=== PATIENT | female | born 2000 | race Caucasian/White ===

== ENCOUNTER 2022-01-13 23:15 | Emergency (ER) | payer OTHER, SELFPAY ==
[2022-01-13 23:17] VITALS: BP 145/83; PULSE 83; RESP 17; TEMP 36.6; O2SAT 99
--- NOTE | 2022-01-14 00:16 | ED.EYEPROB ---
HPI - Eye Problem General Chief complaint: Eye Problems Stated complaint: Eye injury Time Seen by Provider: 01/14/22 00:05 History of Present Illness HPI Narrative: 21-year-old female presented to the emergency room for evaluation of swelling to her right eye. Patient states that she was exposed to a cat which she is allergic to and was pulling cat hair out of her right eye. Noticed swelling of her conjunctive on her right eye. Denies any visual changes. Denies photosensitivity. Related Data Home Medications Medication Instructions Recorded Confirmed sertraline 50 mg tablet 50 mg PO DAILY 02/03/20 Allergies Allergy/AdvReac Type Severity Reaction Status Date / Time No Known Allergies Allergy Verified 01/13/22 23:19 Review of Systems Review of Systems: CONSTITUTIONAL: Denies fever, chills, or sweats. EYES: Reports swelling to her right eye ENT: Denies rhinorrhea, congestion, sore throat, or otalgia. CARDIOVASCULAR: Denies chest pain, palpitations, or edema. RESPIRATORY: Denies cough or dyspnea. GASTROINTESTINAL: Denies abdominal pain, nausea, vomiting, or diarrhea. GENITOURINARY: Denies dysuria or hematuria. SKIN: Denies rash or itching. MUSCULOSKELETAL: Denies back pain, joint pain, or myalgia. NEUROLOGIC: Denies headache, numbness, dizziness, or weakness. PSYCHIATRIC: Denies anxiety or depression. [facility] Past Medical History Medical History (Updated 01/14/22 @ 00:19 by Dev Martin APRN) Anxiety Depression Social History Social History Smoking status: Never smoker Alcohol intake: never Substance use: never Substance use type: does not use Gender identity (if verbalized by the patient): Female Exam Narrative: GENERAL: Well-appearing, well-nourished, no physical limitations, and in no acute distress. HEAD: Normocephalic, atraumatic. EYES: Chemosis noted to lateral aspect of right eye, PERRLA and EOMI. CHEST: Clear to auscultation. No respiratory distress. No wheezes rales or rhonchi. No tenderness. HEART: Regular rate and rhythm. No murmur heard. Normal peripheral pulses. BACK: No CVA tenderness; No cervical/thoracic/lumbar tenderness, step-offs, bony abnormality; FROM EXTREMITIES: Normal range of motion. No edema. No clubbing or cyanosis SKIN: Warm, dry, no rash. No noted wounds NEURO: No focal deficits. Alert and oriented x3. MAEW. CN's II-XI intact bilaterally, normal gait PSYCH: Cooperative. Normal mood and affect. Course Vital Signs Vital signs: Vital Signs Temperature 36.6 C 01/13/22 23:17 Pulse Rate 83 01/13/22 23:17 Respiratory Rate 17 01/13/22 23:17 Blood Pressure 145/83 H 01/13/22 23:17 Pulse Oximetry 99 01/13/22 23:17 Oxygen Delivery Room Air 01/13/22 23:17 Temperature 36.6 C 01/13/22 23:17 Pulse Rate 83 01/13/22 23:17 Respiratory Rate 17 01/13/22 23:17 Blood Pressure 145/83 H 01/13/22 23:17 Pulse Oximetry 99 01/13/22 23:17 Oxygen Delivery Room Air 01/13/22 23:17 Discharge Plan Discharge Clinical Impression: Acute allergic conjunctivitis Patient Disposition: Home, Self-Care Condition: Stable Instructions: Antibiotic Form Additional Instructions: Recommend taking Zyrtec or Claritin during the day. May take Benadryl at night to alleviate the swelling. Prescriptions: New polymyxin B sulf-trimethoprim 10,000 unit- 1 mg/mL drops 1 drp RIGHT EYE Q3H 5 Days Qty: 10 0RF Rx Instructions: while awake; do not exceed 6 doses in 24 hours No Action sertraline 50 mg tablet 50 mg PO DAILY Follow-up/Referrals: Carlitos Lubin MD [Primary Care Provider] - Time of Disposition: 00:20
== END 2022-01-14 00:38 | disposition home or self-care (01) ==
LOC: ANHED 01-14 00:26
PROVIDERS: Emergency Provider Nurse Practitioner Family; PCP Family Medicine
DX: H10.11 Acute atopic conjunctivitis, right eye (principal); F41.9 Anxiety disorder, unspecified; F32.A Depression, unspecified
CPT/HCPCS: 96372; 99283; J1100

== ENCOUNTER 2023-11-26 17:22 | Emergency (ER) | payer OTHER, SELFPAY ==
[2023-11-26 17:34] VITALS: BP 141/78; PULSE 81; RESP 20; TEMP 36.4; O2SAT 99
[2023-11-26 19:52] LABS: Basophils Percent Auto 0.3 % (0.2-1.2); Eosinophils Absolute Auto 0.3 K/mm3 (0-0.3); Eosinophils Percent Auto 2.7 % (0-4.4); Hematocrit 38.2 % (37.0-47.0); Hemoglobin 12.1 g/dL (12.0-15.0); Immature Granulocyte Absolute 0.03 K/mm3 (0.00-0.031); Immature Granulocyte Percent A 0.3 % (0-0.5); Lymphocytes Absolute Auto 1.94 K/mm3 (0.9-3.2); Lymphocytes Percent Auto 19.2 % (18.3-44.2); Mean Corpuscular HGB Conc 31.7 g/dl (32-36); Mean Corpuscular Hemoglobin 27.4 pg (26-34); Mean Corpuscular Volume 86.4 fl (80-100); Mean Platelet Volume 9.6 fl (7.4-10.4); Monocytes Absolute Auto 0.4 K/mm3 (0.1-0.6); Monocytes Percent Auto 4.2 % (2.6-8.5); Neutrophils Absolute Auto 7.4 K/mm3 (1.3-6.7); Neutrophils Percent Auto 73.3 % (45.5-73.1); Platelet Count Result 261 k/mm3 (150-375); Red Blood Count 4.42 M/mm3 (4.2-5.4); Red Cell Distribution Width 14.5 % (11.5-14.5); White Blood Count 10.1 K/mm3 (4.5-10.0)
[2023-11-26 20:02] LABS: Alanine Aminotransferase 22 U/L (6-35); Albumin Level 4.8 g/dL (3.5-5.1); Alkaline Phosphatase 64 U/L (38-126); Anion Gap 11 mmol/L (4-12); Appearance Urine Turbid (Clear); Aspartate Amino Transferase 24 U/L (14-36); Bacteria Urine 4+ /hpf; Bilirubin Urine Negative (Negative); Bilirubin,Total 0.5 mg/dL (0.2-1.3); Blood Urea Nitrogen 7 mg/dL (7-17); Blood Urine Negative (Negative); Calcium 9.2 mg/dL (8.4-10.2); Carbon Dioxide 20 mmol/L (22-30); Chloride 107 mmol/L (98-107); Color Urine Dark Yellow (Yellow); Estimated CRCL calculation 164 ml/min; Estimated Glomerular Filt Rate > 60; Glucose 107 mg/dL (65-110); Glucose Urine UA Negative (Negative); Ketones Urine 3+ mg/dL (Negative); Leukocyte Esterase Ur Trace LEU/UL (Negative); Nitrate Urine Negative (Negative); Potassium 3.6 mmol/L (3.4-5.0); Protein Urine 1+ mg/dL (Negative); Sodium 138 mmol/L (137-145); Squamous Epithelial Cell Urine Many /hpf (Few); pH Urine 5.5 (5.0-9.0)
[2023-11-26 20:06] LABS: Add Urine Microscopic? YES
[2023-11-26 22:40] VITALS: BP 132/68; PULSE 86; RESP 15; O2SAT 100
--- NOTE | 2023-11-26 22:40 | ED.GENADULT ---
[facility] - General Adult General Chief complaint: Nausea/Vomiting/Diarrhea Stated complaint: 8 weeks preg with n/v Time Seen by Provider: 11/26/23 22:22 Source: patient Mode of arrival: ambulatory Limitations: no limitations History of Present Illness [facility] narrative: This is a 22-year-old female who is approximately 8 weeks and presents to the ED for chief complaint of N/V x2 days. Reports that she has felt extremely nauseous and has vomited over 10 times today. She is not taking anything for nausea. She tried to go to work today will was unable to tolerate even a sip of water. Denies abdominal pain, vaginal symptoms, urinary symptoms, diarrhea. Follows with Dr. Davidson. Related Data Home Medications Medication Instructions Recorded Confirmed sertraline 50 mg tablet 50 mg PO DAILY 02/03/20 Allergies Allergy/AdvReac Type Severity Reaction Status Date / Time No Known Allergies Allergy Verified 01/13/22 23:19 Review of Systems Review of Systems: All systems as dictated in [facility] Past Medical History Medical History (Updated 11/27/23 @ 01:36 by Maxi Casillas PA-C) Anxiety Depression Social History Social History Smoking status: Never smoker Alcohol intake: never Substance use: never Substance use type: does not use Living arrangements: with family Occupation/Education: occupation Gender identity (if verbalized by the patient): Female Exam Narrative: GENERAL: Well-appearing, well-nourished, and in no acute distress. HEAD: Normocephalic, atraumatic. EYES: PERRLA and EOMI. ENT: Nares clear, no rhinorrhea or epistaxis. Mucous membranes moist. Oropharynx without tonsillar hypertrophy exudate or other lesions. NECK: Supple. No adenopathy or masses. CHEST: No respiratory distress. Clear to auscultation. No wheezes rales or rhonchi HEART: Regular rate and rhythm. No murmur heard. Normal peripheral pulses. ABDOMEN: Soft, nontender, nondistended, normal active bowel sounds. MSK: Normal range of motion. No edema. SKIN: Warm, dry, no rash. NEURO: Alert and oriented x3. No focal deficits. PSYCH: Normal mood and affect. Course Vital Signs Vital signs: Vital Signs Temperature 97.6 F 11/26/23 17:34 Pulse Rate 81 11/26/23 17:34 Respiratory Rate 20 11/26/23 17:34 Blood Pressure 141/78 H 11/26/23 17:34 Pulse Oximetry 99 11/26/23 17:34 Oxygen Delivery Room Air 11/26/23 17:34 Temperature 97.6 F 11/26/23 17:34 Pulse Rate 84 11/27/23 01:49 Respiratory Rate 14 11/27/23 01:49 Blood Pressure 108/60 11/27/23 01:49 Pulse Oximetry 99 11/27/23 01:49 Oxygen Delivery Room Air 11/26/23 17:34 Medical Decision Making MDM Narrative Medical decision making narrative: This is a 22-year-old female who presents to the ED with chief complaint of N/V and 8 weeks . Vitals are normal. Exam is benign overall. No evidence of acute abdomen. HCG bedside is positive. Lab work is unremarkable overall. UA shows evidence of dehydration with 3+ ketones, 1+ protein. After fluids, IV Zofran and Reglan patient is feeling much improved overall. Seemed to have the most benefit with Reglan. Symptoms presentation consistent with hyperemesis gravidarum. Discussed plan for discharge with the patient. Rx for Reglan given. Also given Rx for vitamin B6. Pt will be discharged in stable condition. Return precautions given and supportive measures discussed. Pt is understanding and agreeable with plan for discharge and follow-up with PCP/OB Vital Signs Vital Signs: Vital Signs Temperature 97.6 F 11/26/23 17:34 Pulse Rate 81 11/26/23 17:34 Respiratory Rate 20 11/26/23 17:34 Blood Pressure 141/78 H 11/26/23 17:34 Pulse Oximetry 99 11/26/23 17:34 Oxygen Delivery Room Air 11/26/23 17:34 Temperature 97.6 F 11/26/23 17:34 Pulse Rate 84 11/27/23 01:49 Respiratory Rate
[2023-11-26] MEDS: SODIUM CHLORIDE 0.9% IV 1,000 ML 999 ML IV CONT ×2 (22:42→22:43)
[2023-11-26] MEDS: ONDANSETRON INJ 4 MG/2 ML VIAL IV PUSH (22:42)
[2023-11-27] MEDS: METOCLOPRAMIDE HCL INJ 10 MG/2 ML VIAL IV PUSH (00:33)
[2023-11-27 00:35] VITALS: BP 126/72; PULSE 96; RESP 15; O2SAT 100
[2023-11-27 01:32] LABS: Pregnancy On Board Control Positive; Urine Pregnancy Test Positive
[2023-11-27 01:49] VITALS: BP 108/60; PULSE 84; RESP 14; O2SAT 99
== END 2023-11-27 01:51 | disposition home or self-care (01) ==
PROVIDERS: Emergency Medicine; Emergency Provider Physician Assistant; PCP Family Medicine
DX: O21.0 Mild hyperemesis gravidarum (principal); Z3A.08 8 weeks gestation of pregnancy; O99.341 Other mental disorders complicating pregnancy, first trimester; F41.9 Anxiety disorder, unspecified; F32.A Depression, unspecified
CPT/HCPCS: 36415; 80053; 81001; 81025; 85025; 87086; 87088; 96361; 96374; 99284; J2405; J2765; J7030

== ENCOUNTER 2024-05-23 08:47 | Observation (INO) | payer BC, SELFPAY ==
--- NOTE | ~2024-05-23 | US_ITS ---
EXAMINATION: US OB BPP wo non-stress DATE: 05/23/2024 13:29 INDICATION: Variable decelerations. TECHNIQUE: Real-time pelvic ultrasound was performed. COMPARISON: None. FINDINGS: There is a single living fetus in vertex presentation. The placenta is anterior. heart rate is 136 beats per minute (bpm). The deepest vertical pocket is 4.3 cm. Biophysical profile performed by the technologist: breathing (30 sec sustained breathing in 30 minutes): 2 out of 2 movement (3 gross body movements in 30 minutes): 2 out of 2 tone (one episode of [id number]-wrdosbs limb movement): 2 out of 2 Amniotic fluid pocket (2 cm): 2 out of 2 Total score: 8 out of 8 IMPRESSION: 1. Single living fetus in vertex presentation. 2. Biophysical profile 8 out of 8. Reviewed, dictated and finalized at location A. [employer]
[2024-05-23 09:21] VITALS: BMI 45.2
[2024-05-23 09:22] VITALS: BP 122/70; PULSE 91; RESP 18; TEMP 36.6
[2024-05-23 09:22] LABS: Add Urine Microscopic? YES; Appearance Urine Cloudy (Clear); Bacteria Urine 1+ /hpf; Bilirubin Urine 1+ (Negative); Blood Urine Negative (Negative); Color Urine Dark Yellow (Yellow); Glucose Urine UA Negative (Negative); Ketones Urine Trace mg/dL (Negative); Leukocyte Esterase Ur Negative LEU/UL (Negative); Nitrate Urine Negative (Negative); Non Pathogenic Casts 0-2; Protein Urine 1+ mg/dL (Negative); RBC Urine 0-2 /hpf (0-2); Specific Grav Ur 1.035 (1.001-1.035); Squamous Epithelial Cell Urine Moderate /hpf (Few); WBC Urine 0-5 /hpf (0-3); pH Urine 5.5 (5.0-9.0)
--- NOTE | 2024-05-23 09:26 | OBADM ---
This patient, Esthela Bean, admitted to the OB room 116 for observation. Patient/family oriented to hospital policies and general routines including ID bracelet, bed and alarms, visiting hours, pain management, procedures, bathroom and other care routines, personal items, smoking policy, room service/diet, and visiting hours. Patient/Family are encouraged to report perceived risks to care and to ask questions if they do not understand what they are told or what they should do.
[2024-05-23 09:30] VITALS: BP 118/74; PULSE 98
[2024-05-23 10:00] VITALS: BP 124/53; PULSE 96
[2024-05-23] MEDS: PROMETHAZINE HCL 25 MG TABLET PO (10:02)
[2024-05-23 12:21] VITALS: BP 118/54; PULSE 76
--- NOTE | 2024-05-23 13:43 | PC.NURSE ---
BPP 8/8 and deepest vertical pocket is 4.3 cm
--- NOTE | 2024-06-16 08:11 | P.PNOB_ITS ---
OB - Triage/Final Diagnosis Visit Information Comments/Additional reasons for admission: I have assessed the risk for this patient, Esthela Bean, and determined that she would benefit from observation care. Evaluation Laboratory results: Laboratory Tests 05/23/24 09:07 Urine Color Dark yellow Urine Appearance Cloudy H Urine pH 5.5 Ur Specific [place] 1.035 Urine Protein 1+ H Urine Glucose (UA) Negative Urine Ketones Trace H Ur Blood (Man) Negative Urine Nitrate Negative Urine Bilirubin 1+ H Urine Urobilinogen 1.0 Leukocyte Esterase Rfl Negative Urine RBC 0-2 Urine WBC 0-5 Ur Squamous Epith Cells Moderate Urine Bacteria 1+ H Urine Casts 0-2 Final Diagnosis (1) labor: Code(s): O60.00 - labor without delivery, unspecified trimester Status: Acute
== END 2024-05-23 13:40 | disposition home or self-care (01) ==
PROVIDERS: Admitting Provider Obstetrics & Gynecology; Visit Provider Obstetrics & Gynecology
DX: O60.03 Preterm labor without delivery, third trimester (principal); Z3A.31 31 weeks gestation of pregnancy
CPT/HCPCS: 76819; 81001; A9270; G0378; G0379

== ENCOUNTER 2024-06-14 05:38 | Observation (INO) | payer BC, SELFPAY ==
[2024-06-14 06:07] VITALS: BMI 44.4
--- NOTE | 2024-06-14 06:07 | OBADM ---
This patient, Esthela Bean, admitted to the OB room OB Post 116 for observation. Patient/family oriented to hospital policies and general routines including ID bracelet, bed and alarms, visiting hours, pain management, procedures, bathroom and other care routines, personal items, smoking policy, room service/diet, and visiting hours. Patient/Family are encouraged to report perceived risks to care and to ask questions if they do not understand what they are told or what they should do.
[2024-06-14 06:16] VITALS: BP 122/69; PULSE 97
[2024-06-14 06:25] LABS: Add Urine Microscopic? YES; Appearance Urine Cloudy (Clear); Bacteria Urine 1+ /hpf; Bilirubin Urine Negative (Negative); Blood Urine Negative (Negative); Color Urine Yellow (Yellow); Glucose Urine UA Negative (Negative); Ketones Urine Negative (Negative); Leukocyte Esterase Ur 2+ LEU/UL (Negative); Nitrate Urine Negative (Negative); Non Pathogenic Casts 0-2; Protein Urine Negative (Negative); RBC Urine 0-2 /hpf (0-2); Specific Grav Ur 1.019 (1.001-1.035); Squamous Epithelial Cell Urine Moderate /hpf (Few); Urobilinogen Urine 0.2 mg/dL (<2.0)
[2024-06-14] MEDS: NIFEdipine 30 MG TAB.ER.24 60 MG PO (09:08)
--- NOTE | 2024-07-08 10:43 | P.PNOB_ITS ---
OB - Triage/Final Diagnosis Visit Information Comments/Additional reasons for admission: I have assessed the risk for this patient, Esthela Bean, and determined that she would benefit from observation care. Evaluation Laboratory results: Laboratory Tests 06/14/24 05:56 Urine Color Yellow Urine Appearance Cloudy H Urine pH 7.0 Ur Specific [place] 1.019 Urine Protein Negative Urine Glucose (UA) Negative Urine Ketones Negative Ur Blood (Man) Negative Urine Nitrate Negative Urine Bilirubin Negative Urine Urobilinogen 0.2 Leukocyte Esterase Rfl 2+ H Urine RBC 0-2 Urine WBC 6-10 H Ur Squamous Epith Cells Moderate Urine Bacteria 1+ H Urine Casts 0-2 Final Diagnosis (1) contractions: Code(s): O47.00 - False labor before 37 completed weeks of gestation, unspecified trimester Status: Acute
== END 2024-06-14 09:27 | disposition home or self-care (01) ==
PROVIDERS: Admitting Provider Obstetrics & Gynecology; Visit Provider Obstetrics & Gynecology
DX: O47.03 False labor before 37 completed weeks of gestation, third trimester (principal); Z3A.34 34 weeks gestation of pregnancy
CPT/HCPCS: 81001; 87086; A9270; G0378; G0379

== ENCOUNTER 2024-06-15 10:30 | Inpatient (IN) | payer BC, SELFPAY ==
[2024-06-15] VITALS (162 sets, daily range): BP systolic 98–149; BP diastolic 50–92; PULSE 85–135; TEMP 36.4–37.7; O2SAT 94–100; BMI 44.4
[2024-06-15 11:22] LABS: OBXCEM ROM Plus Positive (Negative)
[2024-06-15 12:05] LABS: Basophils Percent Auto 0.2 % (0.2-1.2); Eosinophils Absolute Auto 0.2 K/mm3 (0-0.3); Eosinophils Percent Auto 1.9 % (0-4.4); Hematocrit 33.2 % (37.0-47.0); Hemoglobin 10.6 g/dL (12.0-15.0); Immature Granulocyte Absolute 0.06 K/mm3 (0.00-0.031); Immature Granulocyte Percent A 0.5 % (0-0.5); Lymphocytes Absolute Auto 1.28 K/mm3 (0.9-3.2); Lymphocytes Percent Auto 11.2 % (18.3-44.2); Mean Corpuscular HGB Conc 31.9 g/dl (32-36); Mean Corpuscular Hemoglobin 28.4 pg (26-34); Mean Platelet Volume 10.1 fl (7.4-10.4); Monocytes Absolute Auto 0.7 K/mm3 (0.1-0.6); Monocytes Percent Auto 6.1 % (2.6-8.5); Neutrophils Absolute Auto 9.1 K/mm3 (1.3-6.7); Neutrophils Percent Auto 80.1 % (45.5-73.1); Platelet Count Result 232 k/mm3 (150-375); Red Blood Count 3.73 M/mm3 (4.2-5.4); Red Cell Distribution Width 13.7 % (11.5-14.5); White Blood Count 11.4 K/mm3 (4.5-10.0)
[2024-06-15] MEDS: AMPICILLIN 2 GM/NS 100 ML 2 GM/100 ML BAG IVPB (12:12)
[2024-06-15] MEDS: LACTATED RINGERS 1,000 ML 125 ML IV CONT ×3 (12:12→22:01)
--- NOTE | 2024-06-15 12:14 | WPDHPUPDATE1 ---
History and Physical Update Update Date/Time: 06/15/24 12:14 23-year-old prime at 35 weeks gestation with pre term premature rupture membranes. To receive antibiotics. Shortly after that we begin active management of labor. Reassuring status. History and Physical has been reviewed, including an updated exam of the patient. There are NO changes in the patient's condition. Risks, benefits, and alternatives have been discussed and questions answered. Patient agrees to proceed with procedure.
[2024-06-15 12:45] LABS: Rapid Plasma Reagin Non-Reactive (NonReactive)
--- NOTE | 2024-06-15 13:14 | LDADM ---
This patient, Esthela Bean, was admitted to Labor/Delivery/Recovery 105 on 06/15/24 at 10:30. Plans for labor, pain management and were discussed with patient. Patient/family oriented to hospital policies and general routines including ID bracelet, bed and alarms, visiting hours, pain management, procedures, bathroom and other care routines, personal items, smoking policy, room service/diet and guest tray routines, security routines, and visiting hours. Patient/Family are encouraged to report perceived risks to care and to ask questions if they do not understand what they are told or what they should do. See OBIX for further documentation.
[2024-06-15 13:21] LABS: HIV 1/2 Ab P24 Ag Result Negative (Negative)
[2024-06-15] MEDS: OXYTOCIN 30 UNITS/NS 500 ML 30 UNITS/500 ML BAG 6 UNITS IV CONT (13:52)
[2024-06-15] MEDS: fentaNYL CITRATE INJ (*CRX) 100 MCG/2 ML VIAL 50 MCG IV PUSH (15:13)
--- NOTE | 2024-06-15 15:30 | WPDANESEPP ---
Anes - Eval Pre Procedure Procedure: labor epidural Date/Time: 06/15/24 15:30 Preop Diagnosis: labor pain Pre Op Diagnosis: Labor Patient Data Age: 23 Gender: F Height: 1.68 m Weight: 125 kg Last Vital Signs Pulse 101 H 06/15/24 15:00 BP 127/72 06/15/24 15:00 O2 Del Method Room Air 06/15/24 13:06 Allergies Allergy/AdvReac Type Severity Reaction Status Date / Time No Known Allergies Allergy Verified 06/15/24 12:35 Home Medications Medication Instructions Recorded Confirmed Type aspirin 81 mg chewable tablet 81 mg PO DAILY 05/23/24 06/15/24 History bupropion HCl 300 mg 24 hr tablet, 300 mg PO DAILY 05/23/24 06/15/24 History extended release escitalopram oxalate 10 mg tablet 10 mg PO DAILY 05/23/24 06/15/24 History ferrous sulfate 142 mg (45 mg 142 mg PO DAILY 05/23/24 06/15/24 History iron) tablet,extended release vit no.95-ferrous 1 tablet PO DAILY 05/23/24 06/15/24 History fumarate 28 mg-folic acid 800 mcg tablet () promethazine 25 mg tablet 25 mg PO Q6H PRN Nausea #15 tabs 05/23/24 06/15/24 Rx nifedipine 60 mg tablet,extended 60 mg PO DAILY #30 tabs 05/29/24 06/15/24 Rx release 24 hr (Procardia XL) cetirizine 10 mg capsule (Zyrtec) 10 mg PO DAILY PRN allergies 06/15/24 06/15/24 History Laboratory Tests 06/15/24 06/15/24 10:55 11:56 WBC 11.4 H K/mm3 (4.5-10.0) RBC 3.73 L M/mm3 (4.2-5.4) Hgb 10.6 L g/dL (12.0-15.0) Hct 33.2 L % (37.0-47.0) MCV 89.0 fl (80-100) MCH 28.4 pg (26-34) MCHC 31.9 L g/dl (32-36) RDW 13.7 % (11.5-14.5) Plt Count 232 k/mm3 (150-375) MPV 10.1 fl (7.4-10.4) Immature Gran % (Auto) 0.5 % (0-0.5) Neut % (Auto) 80.1 H % (45.5-73.1) Lymph % (Auto) 11.2 L % (18.3-44.2) [place] % (Auto) 6.1 % (2.6-8.5) Eos % (Auto) 1.9 % (0-4.4) Baso % (Auto) 0.2 % (0.2-1.2) Lymph # (Auto) 1.28 K/mm3 (0.9-3.2) [place] # (Auto) 0.7 H K/mm3 (0.1-0.6) Eos # (Auto) 0.2 K/mm3 (0-0.3) Baso # (Auto) 0.0 K/mm3 (0.0-0.1) Abs Immat Gran (auto) 0.06 H K/mm3 (0.00-0.031) Absolute Neuts (auto) 9.1 H K/mm3 (1.3-6.7) Absolute Nucleated RBC 0.000 K/mm3 (0.0-0.012) Nucleated RBC % 0.0 % (0.0-0.2) Membranes Rupture Rom plus positive (Negative) RPR Non-reactive (NonReactive) HIV 1&2 Ab/P24 Ag 4thGn Negative (Negative) Blood Type O Positive Antibody Screen Negative Patient hx anesthesia problems: none Family hx anesthesia problems: none Results Review: All pre-operative results and documents have been reviewed as part of the pre-operative evaluation. [facility] Past Medical History Medical History (Updated 06/15/24 @ 15:31 by Elizabeth Leung CRNA) Anemia Anxiety Depression Morbid obesity Family History Family History Grandparent Acute myocardial infarction Cerebrovascular accident Diabetes mellitus Hypertension Unknown Acute myocardial infarction Other Acute myocardial infarction Father Neuroendocrine carcinoma Social History Social History Smoking status: Never smoker Alcohol intake: never Substance use: never Substance use type: does not use Do You Feel Safe in your Home?: Yes Lack of Transportation: No Lack of Food: Never True Current Housing: I Have Housing Concerned About Future Housing: No Difficulty Paying Gas/Electric Bills: No Difficulty Paying for Meds: No Currently Unemployed: No Education: High School Diploma/GED Difficulty w/ Childcare or Family Care: No Living arrangements: with family Occupation/Education: occupation Gender identity (if verbalized by the patient): Female Spiritual care concerns: No Exam Day of Procedure 06/15/24 15:30 Patient weight: morbidly obese Heart: regular rate and rhythm Lungs: clear to auscultation and normal air movement Airway: Mallampati scale class III Neurological: alert and oriented
[2024-06-15] MEDS: AMPICILLIN 1 GM/NS 50 ML 1 GM/50 ML BAG IVPB ×3 (16:12→23:30)
[2024-06-15] MEDS: diphenhydrAMINE HCl INJ 50 MG/ML VIAL 25 MG IV PUSH (23:35)
[2024-06-16] VITALS (44 sets, daily range): BP systolic 100–136; BP diastolic 58–89; PULSE 87–117; RESP 15–23; TEMP 36.4–36.9; O2SAT 93–99
[2024-06-16] MEDS: ACETAMINOPHEN 500 MG TABLET 1000 MG PO (00:11)
--- NOTE | 2024-06-16 00:11 | P.HP_ITS ---
H&P: HPI History of Present Illness Date/Time: 06/16/24 00:11 Chief Complaint: Term Narrative: this patient is 23 year old primipara at 35 weeks gestation who proceeded through labor after pprom. her labor became obstructed 8 cm. She remained 8 cm for over 4 hours. She has tachycardia. Agreed to proceed with delivery. She has swelling of her cervix. The patient understands the details of the procedure. The procedure has been explained in detail. She understands the risks. She understands that injuries may occur that result in hospitalization, more surgery, and severe illness. She understands risk of hemorrhage and infection. She denies any chest pain or shortness of breath. She denies any nausea, vomiting, fever, chills. Review of Systems Review of Systems: All systems reviewed & are unremarkable except as noted in HPI and below Constitutional: Constitutional: Denies chills, Denies fatigue, Denies fever(s) and Denies weakness Eyes: Eyes: Denies blurry vision, Denies change in vision, Denies loss of peripheral vision, Denies loss of vision, Denies other visual disturbances and Denies eye pain ENT: Denies vertigo, Denies dizziness, Denies hearing loss, Denies mouth pain, Denies nasal obstruction, Denies neck mass and Denies neck pain Cardiovascular: Cardiovascular: Denies chest pain, Denies diaphoresis, Denies syncope, Denies leg edema and Denies dyspnea Respiratory: Respiratory: Denies chest congestion, Denies cough, Denies he moptysis, Denies dyspnea and Denies wheezing Gastrointestinal: Gastrointestinal: Denies abdominal pain, Denies constipation, Denies diarrhea, Denies nausea and Denies vomiting Genitourinary: Genitourinary: Denies hematuria, Denies change in libido, Denies nocturia, Denies genital lesions, Denies flank pain and Denies urinary urgency Musculoskeletal: Musculoskeletal: Denies abnormal gait, Denies back pain, Denies myalgias, Denies arthralgias, Denies joint swelling, Denies muscle weakness and Denies neck pain Integumentary/Breasts: Skin/Breast: Denies swelling, Denies breast pain, Denies breast mass, Denies dry skin, Denies nipple discharge, Denies unusual bruising and Denies jaundice Neurologic: Denies Neuro-related abnormal movements, Denies Abnormal speech present, Denies abnormal gait, Denies behavioral changes, Denies confusion, Denies vertigo, Denies dizziness, Denies syncope, Denies loss of vision, Denies memory loss, Denies convulsions and Denies weakness Psychiatric: Psychiatric: Denies abnormal sleep pattern, Denies behavioral changes, Denies change in libido, Denies confusion, Denies depression, Denies anhedonia and Denies memory loss Endocrine: Endocrine: Reports no additional endocrine complaints, Denies change in libido and Denies fatigue Hematologic/Lymphatic: Hematologic/Lymphatic: Reports no additional hematologic/lymphatic complaints Allergic/Immunologic: Allergic/Immunologic: Reports no additional allergic/immunologic complaints and Denies wheezing PMFSH Past Medical History Medical History (Updated 06/16/24 @ 00:14 by Cristi Davidson MD) Anemia Anxiety Depression Morbid obesity Family History Family History Grandparent Acute myocardial infarction Cerebrovascular accident Diabetes mellitus Hypertension Unknown Acute myocardial infarction Other Acute myocardial infarction Father Neuroendocrine carcinoma Social History Social History Smoking status: Never smoker Alcohol intake: never Substance use: never Substance use type: does not use Do You Feel Safe in your Home?: Yes Lack of Transportation: No Lack of Food: Never True Current Housing: I Have Housing Concerned About Future Housing: No Difficulty Paying Gas/Electric Bills: No Difficulty Paying for Meds: No Currently Unemployed: No Education: High School Diploma/GED Difficulty w/ Childcare or Family Care: No Living arrangements: with family Occupation/Education: occupation Gender identity (if verbalized by the patient): Female Spiritual care concerns: No Meds Home Medications and Allergies Home Medications Medication Instructions Recorded Confirmed Type aspirin 81 mg chewable tablet 81 mg PO DAILY 05/23/24 06/15/24 History bupropion HCl 300 mg 24 hr tablet, 300 mg PO DAILY 05/23/24 06/15/24 History extended release escitalopram oxalate 10 mg tablet 10 mg PO DAILY 05/23/24 06/15/24 History ferrous sulfate 142 mg (45 mg 142 mg PO DAILY 05/23/24 06/15/24 History iron) tablet,extended release vit no.95-ferrous 1 tablet PO DAILY 05/23/24 06/15/24 History fumarate 28 mg-folic acid 800 mcg tablet () promethazine 25 mg tablet 25 mg PO Q6H PRN Nausea #15 tabs 05/23/24 06/15/24 Rx nifedipine 60 mg tablet,extended 60 mg PO DAILY #30 tabs 05/29/24 06/15/24 Rx release 24 hr (Procardia XL) cetirizine 10 mg capsule (Zyrtec) 10 mg PO DAILY PRN allergies 06/15/24 06/15/24 History Allergies Allergy/AdvReac Type Severity Reaction Status Date / Time No Known Allergies Allergy Verified 06/15/24 12:35 Vital Signs Vital Signs - 24 hr 06/15/24 11:00 06/15/24 11:15 06/15/24 11:30 Temperature 98.7 F Pulse Rate 97 100 95 Blood Pressure 128/75 118/67 129/71 Pulse Oximetry Oxygen Delivery 06/15/24 12:00 06/15/24 12:15 06/15/24 12:30 Temperature Pulse Rate 92 103 H 100 Blood Pressure 133/66 104/51 L 126/75 Pulse Oximetry Oxygen Delivery 06/15/24 13:00 06/15/24 13:15 06/15/24 13:30 Temperature 98.2 F Pulse Rate 102 H 92 92 Blood Pressure 143/82 H 144/69 H 149/71 H Pulse Oximetry Oxygen Delivery 06/15/24 13:45 06/15/24 14:00 06/15/24 14:30 Temperature Pulse Rate 92 93 114 H Blood Pressure 145/67 H 146/77 H 141/76 H Pulse Oximetry Oxygen Delivery 06/15/24 15:00 06/15/24 15:32 06/15/24 15:33 Temperature 98.3 F Pulse Rate 101 H 107 H Blood Pressure 127/72 124/82 Pulse Oximetry 96 Oxygen Delivery 06/15/24 15:37 06/15/24 15:42 06/15/24 15:47 Temperature Pulse Rate Blood Pressure Pulse Oximetry 96 97 99 Oxygen Delivery 06/15/24 15:52 06/15/24 15:54 06/15/24 15:55 Temperature Pulse Rate 105 H 107 H 101 H Blood Pressure 131/74 129/84 141/91 H Pulse Oximetry 98 Oxygen Delivery 06/15/24 15:57 06/15/24 15:58 06/15/24 16:00 Temperature Pulse Rate 101 H 98 Blood Pressure 140/70 132/64 Pulse Oximetry 96 96 Oxygen Delivery 06/15/24 16:02 06/15/24 16:03 06/15/24 16:05 Temperature Pulse Rate 98 98 Blood Pressure 143/67 H 131/73 Pulse Oximetry 97 Oxygen Delivery 06/15/24 16:07 06/15/24 16:08 06/15/24 16:10 Temperature Pulse Rate 96 99 Blood Pressure 126/76 132/62 Pulse Oximetry 98 Oxygen Delivery 06/15/24 16:12 06/15/24 16:13 06/15/24 16:15 Temperature Pulse Rate 98 98 Blood Pressure 139/66 133/66 Pulse Oximetry 97 Oxygen Delivery 06/15/24 16:17 06/15/24 16:18 06/15/24 16:20 Temperature Pulse Rate 93 99 Blood Pressure 133/73 129/67 Pulse Oximetry 96 Oxygen Delivery 06/15/24 16:22 06/15/24 16:23 06/15/24 16:25 Temperature Pulse Rate 91 85 Blood Pressure 130/69 134/67 Pulse Oximetry 96 Oxygen Delivery 06/15/24 16:27 06/15/24 16:28 06/15/24 16:30 Temperature Pulse Rate 96 96 Blood Pressure 129/68 124/69 Pulse Oximetry 95 Oxygen Delivery 06/15/24 16:33 06/15/24 16:38 06/15/24 16:43 Temperature Pulse Rate Blood Pressure Pulse Oximetry 97 95 95 Oxygen Delivery 06/15/24 16:45 06/15/24 16:48 06/15/24 16:53 Temperature Pulse Rate 91 Blood Pressure 127/70 Pulse Oximetry 95 94 Oxygen Delivery 06/15/24 16:58 06/15/24 17:00 06/15/24 17:03 Temperature 97.9 F Pulse Rate 103 H Blood Pressure 145/77 H Pulse Oximetry 94 96 Oxygen Delivery 06/15/24 17:08 06/15/24 17:13 06/15/24 17:15 Temperature Pulse Rate 88 Blood Pressure 117/68 Pulse Oximetry 98 98 Oxygen Delivery 06/15/24 17:18 06/15/24 17:23 06/15/24 17:28 Temperature Pulse Rate Blood Pressure Pulse Oximetry 97 99 99 Oxygen Delivery 06/15/24 17:30 06/15/24 17:38 06/15/24 17:43 Temperature Pulse Rate 102 H Blood Pressure 135/64 Pulse Oximetry 97 95 95 Oxygen Delivery 06/15/24 17:45 06/15/24 17:48 06/15/24 17:53 Temperature Pulse Rate 95 Blood Pressure 137/74 Pulse Oximetry 97 97 Oxygen Delivery 06/15/24 17:56 06/15/24 17:58 06/15/24 18:00 Temperature 97.8 F Pulse Rate 98 91 Blood Pressure 132/58 L 134/65 Pulse Oximetry 98 Oxygen Delivery 06/15/24 18:03 06/15/24 18:08 06/15/24 18:13 Temperature Pulse Rate Blood Pressure Pulse Oximetry 98 97 96 Oxygen Delivery 06/15/24 18:15 06/15/24 18:18 06/15/24 18:23 Temperature Pulse Rate 102 H Blood Pressure 119/70 Pulse Oximetry 98 96 Oxygen Delivery 06/15/24 18:28 06/15/24 18:30 06/15/24 18:33 Temperature Pulse Rate 96 Blood Pressure 135/63 Pulse Oximetry 97 96 Oxygen Delivery 06/15/24 18:38 06/15/24 18:43 06/15/24 18:45 Temperature Pulse Rate 91 Blood Pressure 135/65 Pulse Oximetry 96 96 Oxygen Delivery 06/15/24 18:48 06/15/24 18:53 06/15/24 18:58 Temperature Pulse Rate Blood Pressure Pulse Oximetry 96 96 97 Oxygen Delivery 06/15/24 19:00 06/15/24 19:03 06/15/24 19:08 Temperature Pulse Rate 108 H Blood Pressure 139/65 Pulse Oximetry 96 95 Oxygen Delivery 06/15/24 19:13 06/15/24 19:15 06/15/24 19:18 Temperature Pulse Rate 123 H Blood Pressure 138/92 H Pulse Oximetry 96 100 Oxygen Delivery 06/15/24 19:23 06/15/24 19:28 06/15/24 19:30 Temperature Pulse Rate 92 Blood Pressure 115/65 Pulse Oximetry 100 100 Oxygen Delivery 06/15/24 19:33 06/15/24 19:38 06/15/24 19:43 Temperature Pulse Rate Blood Pressure Pulse Oximetry 99 97 98 Oxygen Delivery 06/15/24 19:45 06/15/24 19:48 06/15/24 19:53 Temperature Pulse Rate 97 Blood Pressure 118/65 Pulse Oximetry 98 98 Oxygen Delivery 06/15/24 19:58 06/15/24 20:00 06/15/24 20:03 Temperature 97.6 F Pulse Rate 87 Blood Pressure 121/68 Pulse Oximetry 99 99 Oxygen Delivery 06/15/24 20:08 06/15/24 20:13 06/15/24 20:15 Temperature Pulse Rate 95 Blood Pressure 102/56 L Pulse Oximetry 98 98 Oxygen Delivery 06/15/24 20:18 06/15/24 20:23 06/15/24 20:28 Temperature Pulse Rate Blood Pressure Pulse Oximetry 98 98 98 Oxygen Delivery 06/15/24 20:30 06/15/24 20:33 06/15/24 20:38 Temperature Pulse Rate 90 Blood Pressure 129/64 Pulse Oximetry 99 100 Oxygen Delivery 06/15/24 20:43 06/15/24 20:45 06/15/24 20:48 Temperature Pulse Rate 97 Blood Pressure 132/73 Pulse Oximetry 99 99 Oxygen Delivery 06/15/24 20:53 06/15/24 20:58 06/15/24 21:00 Temperature Pulse Rate 99 Blood Pressure 135/71 Pulse Oximetry 99 98 Oxygen Delivery 06/15/24 21:03 06/15/24 21:08 06/15/24 21:13 Temperature Pulse Rate Blood Pressure Pulse Oximetry 99 97 96 Oxygen Delivery 06/15/24 21:15 06/15/24 21:18 06/15/24 21:23 Temperature Pulse Rate 102 H Blood Pressure 126/72 Pulse Oximetry 99 98 Oxygen Delivery 06/15/24 21:28 06/15/24 21:30 06/15/24 21:33 Temperature Pulse Rate 103 H Blood Pressure 98/57 L Pulse Oximetry 100 98 Oxygen Delivery 06/15/24 21:38 06/15/24 21:43 06/15/24 21:45 Temperature Pulse Rate 95 Blood Pressure 107/59 L Pulse Oximetry 97 99 Oxygen Delivery 06/15/24 21:48 06/15/24 21:53 06/15/24 21:58 Temperature Pulse Rate Blood Pressure Pulse Oximetry 97 97 97 Oxygen Delivery 06/15/24 22:00 06/15/24 22:03 06/15/24 22:08 Temperature 100 F H Pulse Rate 101 H Blood Pressure 117/51 L Pulse Oximetry 98 98 Oxygen Delivery 06/15/24 22:13 06/15/24 22:15 06/15/24 22:18 Temperature Pulse Rate 112 H Blood Pressure 118/50 L Pulse Oximetry 98 98 Oxygen Delivery 06/15/24 22:23 06/15/24 22:28 06/15/24 22:30 Temperature Pulse Rate 108 H Blood Pressure 108/79 Pulse Oximetry 100 98 Oxygen Delivery 06/15/24 22:33 06/15/24 22:38 06/15/24 22:43 Temperature Pulse Rate Blood Pressure Pulse Oximetry 98 99 100 Oxygen Delivery 06/15/24 22:45 06/15/24 22:48 06/15/24 22:53 Temperature Pulse Rate 98 Blood Pressure 126/64 Pulse Oximetry 97 100 Oxygen Delivery 06/15/24 22:58 06/15/24 23:00 06/15/24 23:03 Temperature Pulse Rate 110 H Blood Pressure 127/73 Pulse Oximetry 98 100 Oxygen Delivery 06/15/24 23:08 06/15/24 23:13 06/15/24 23:15 Temperature Pulse Rate 124 H Blood Pressure 136/76 Pulse Oximetry 99 100 Oxygen Delivery 06/15/24 23:18 06/15/24 23:23 06/15/24 23:28 Temperature Pulse Rate Blood Pressure Pulse Oximetry 98 98 98 Oxygen Delivery 06/15/24 23:30 06/15/24 23:33 06/15/24 23:38 Temperature Pulse Rate 121 H Blood Pressure 139/52 L Pulse Oximetry 99 99 Oxygen Delivery 06/15/24 23:43 06/15/24 23:45 06/15/24 23:48 Temperature Pulse Rate 116 H Blood Pressure 132/69 Pulse Oximetry 97 97 Oxygen Delivery 06/15/24 23:53 06/15/24 23:58 06/16/24 00:00 Temperature Pulse Rate 108 H Blood Pressure 136/67 Pulse Oximetry 97 97 Oxygen Delivery 06/16/24 00:03 06/16/24 00:08 06/16/24 00:11 Temperature Pulse Rate Blood Pressure Pulse Oximetry 99 99 93 Oxygen Delivery 06/15/24 13:06 06/15/24 13:05 Temperature Pulse Rate 102 H Blood Pressure 143/82 H Pulse Oximetry Oxygen Delivery Room Air Exam Const: General: cooperative, healthy appearing, comfortable and no acute distr ess Orientation/consciousness: oriented to person, oriented to place and oriented to time HENMT: Head: normal to inspection Ears: external ears normal Face/Nose/Sinus: Normal external nose present and normal facial exam Face and sinus: normal facial exam Eyes: General: appearance normal, both eyes and all related structures Neck: Neck: normal visual inspection, trachea midline and supple Resp: Auscultation: clear to auscultation bilaterally, no crackles, no rales, no rhonchi and no wheezes Cardio: Rate: regular rate Rhythm: regular rhythm Heart sounds: no click, no murmurs and no rubs GI: GI Palp: No abdominal tenderness, No Soft to palpation, No Tenderness to palpation present (GI) and No Palpable mass present Auscultation: normal bowel sounds Skin: General skin exam: normal color and no rashes or lesions noted Neuro: General: oriented to person, oriented to place and oriented to time Extrem: General: normal to inspection, no joint enlargement, no clubbing, cyanosis or edema, no pedal edema and no calf tenderness Psych: Appearance: grossly normal Mental Status: mental status grossly normal Speech and movement: Normal speech and movement present H&P: Results Labs Labs: Short CBC 06/15/24 Range/Units 11:56 WBC 11.4 H (4.5-10.0) K/mm3 Hgb 10.6 L (12.0-15.0) g/dL Hct 33.2 L (37.0-47.0) % Plt Count 232 (150-375) k/mm3 Assessment and Plan Assessment and plan (1) Failure to progress in labor: Code(s): O62.2 - Other uterine inertia Status: Acute (2) Non-reassuring heart rate or rhythm affecting management of mother: Code(s): O36.8390 - Maternal care for abnormalities of the heart rate or rhythm, unspecified trimester, not applicable or unspecified Status: Acute Plan this patient is 23 year old primipara at 35 weeks gestation who proceeded through labor after pprom. her labor became obstructed 8 cm. She remained 8 cm for over 4 hours. She has tachycardia. Agreed to proceed with delivery. She has swelling of her cervix. we agreed to proceed with delivery. delivery for failure to progress and nonreassuring status. she understands risks, benefits, and alternatives. She has completed informed consent process is ready to proceed
[2024-06-16] MEDS: FAMOTIDINE 20 MG/2 ML VIAL IV PUSH (00:12)
[2024-06-16] MEDS: ONDANSETRON INJ 4 MG/2 ML VIAL IV PUSH (00:12)
--- NOTE | 2024-06-16 00:16 | WPDHPUPDATE1 ---
History and Physical Update Update Date/Time: 06/16/24 00:16 History and Physical has been reviewed, including an updated exam of the patient. There are NO changes in the patient's condition. Risks, benefits, and alternatives have been discussed and questions answered. Patient agrees to proceed with procedure.
--- NOTE | 2024-06-16 01:16 | P.PNAN_ITS ---
Anes - Eval Final PreProcedure Day of Procedure 06/16/24 01:16 Patient weight: morbidly obese Heart: regular rate and rhythm Lungs: clear to auscultation Airway: Mallampati scale class II Neurological: alert and oriented Last oral intake: 6 hours ASA classification: III Emergent: yes Anesthetic plan: proceed Anesthesia type and monitoring: regional epidural and standard monitoring Results Review: All pre-operative results and documents have been reviewed as part of the pre- operative evaluation. Informed Consent: The patient's anesthetic plan and its attendant risks and benefits were discussed with the patient/family/POA. Questions were solicited and answers provided to the satisfaction of the patient/family/POA.
--- NOTE | 2024-06-16 01:28 | W.PM.OBCSD ---
OB - Delivery Note Procedure Delivery date: 06/16/24 Pre-op diagnosis: Arrest of Dilation and Non-Reassuring Status Post-op Diagnosis: Same ( malposition of head) Procedure Performed: Primary Surgeon: Cristi Davidson MD Anesthesia type: Epidural Description of Procedure/Findings: Findings- direct 0P, malposition head, normal anatomy The patient was taken the operating room.? She was prepped and draped in dorsal supine position with a leftward tilt.? This was done after spinal anesthetic was applied.? A low-transverse skin incision was made and carried down till of the fascia with the knife.? The fascial incision was made with the knife.? The fascial incision was extended laterally with Thomson scissors.? The fascia was tented upward superiorly and inferiorly the rectus muscles were dissected off bluntly.? The rectus muscles were the midline.? The preperitoneal fat and peritoneum were dissected open bluntly at the superior aspect of the rectus muscles.? The peritoneal incision was extended superior and inferior with good position of bladder.? The uterine incision was made with a scalpel down to the level of the amniotic cavity.? The amniotic cavity was entered bluntly.? The was delivered.? The cord was clamped and cut and the infant was handed off to waiting pediatric staff.? Cord bloods were obtained.? The placenta was removed manually.? The uterus was exteriorized.? The uterus was cleared of all clots, debris and membranes.? The uterus was closed in 0 Vicryl running lock fashion.? the uterine incision was extended because the depth of the baby's head. Additional sutures were placed the margins of the incision site. An imbricating over a was placed along the incision line as well.? The uterus was returned to the abdomen.? The gutters were cleared of all clots and debris.? The fascia was closed with 0 Vicryl running fashion.? The subcutaneous tissue was irrigated pinpoint bleeders were cauterized.? The skin was closed with subcuticular absorbable chris.? The skin incision line was covered with glue.? The patient tolerated the procedure well.? She has taken recovery room in stable condition.? Sponge lap and needle counts were correct x2.? Specimen: Yes Estimated Blood Loss: 1,000 Pathology: Yes Complications: No immediate complications Condition: Stable
[2024-06-16] MEDS: LIDOCAINE 5% PATCH 1 PATCH TRANSDERM (04:40)
[2024-06-16] MEDS: IBUPROFEN 600 MG TABLET PO (04:40)
[2024-06-16] MEDS: diphenhydrAMINE HCl INJ 50 MG/ML VIAL 25 MG IV PUSH (07:30)
--- NOTE | 2024-06-16 07:55 | PC.NURSE ---
0755- Introductions were made, then consulted with patient to assess needs related to . Discussed with mother her?plans to feed?her and the?experience so far. Baby has been in the level 2 nursery since and mom has not been able to breastfeed. A breast pump was brought to the room but patient hasn't pumped yet. She states that if baby takes to the breast she will breastfeed, but if not she will feed however baby desires. Resources provided for inpatient and outpatient services with the feeding sheet, mom/baby guide, admission folder and name/number written on the communication board. Mother voiced understanding of information and will call if there is a request for assistance. Reported to the Primary RN. 0830- Breast pump provided due to [maternal/ separation]. Instructions given on cleaning, care, usage, that there should be no pain, pumping schedule for milk production, collection, and storage of human milk. Patient will call when pumping for the first time to be assessed for correct placement and flange size. Encouraged mom to pump for stimulation for adequate milk production every 3 hours (8 times in 24 hours) 1-2 times at night. Mother voiced understanding of the education shared along with mom/baby guide for additional resource information. Reported to the Primary RN.
[2024-06-16] MEDS: MULTIVIT/MIN/PREN/FOL AC/IRON TABLET 1 TAB PO (08:41)
[2024-06-16] MEDS: POLYSACCHARIDE IRON COMPLEX 150 MG CAPSULE PO ×2 (08:41→17:01)
[2024-06-16] MEDS: DOCUSATE SODIUM 100 MG CAPSULE PO ×2 (08:42→17:00)
[2024-06-16] MEDS: HYDROcodone/acetaminophen (*CRX) 10-325 MG TABLET 1 TAB PO ×3 (08:51→23:15)
[2024-06-16] MEDS: ESCITALOPRAM OXALATE 10 MG TABLET PO (08:52)
[2024-06-16] MEDS: buPROPion HCL XL (24 HR) 150 MG TABCR 300 MG PO (08:52)
[2024-06-16] MEDS: SIMETHICONE 80 MG TAB.CHEW PO ×3 (08:52→17:01)
[2024-06-16] MEDS: LANOLIN (LANSINOH) 7.5 GM CREAM 1 APPLIC TOPICAL (08:54)
--- NOTE | 2024-06-16 09:53 | OBPPTRN ---
Patient transferred to post room #290 via (wheelchair). Support person present. Oriented to unit, room, information board, rooming in, admission packet and security measures. Patient verbalizes understanding.
--- NOTE | 2024-06-16 10:34 | OBPPTRN ---
Patient transferred to post room #290 via (stretcher ). Support person present. Oriented to unit, room, information board, rooming in, admission packet and security measures. Patient verbalizes understanding.
[2024-06-16] MEDS: KETOROLAC 15 MG/ML VIAL (*BKC) IV PUSH ×3 (11:25→23:10)
[2024-06-16] MEDS: ACETAMINOPHEN 325 MG TABLET 650 MG PO ×3 (11:25→23:15)
[2024-06-17] MEDS: ACETAMINOPHEN 325 MG TABLET 650 MG PO ×4 (04:20→22:11)
[2024-06-17] MEDS: IBUPROFEN 600 MG TABLET PO ×4 (04:20→22:11)
[2024-06-17] MEDS: HYDROcodone/acetaminophen (*CRX) 5-325 MG TABLET 1 TAB PO (05:25)
[2024-06-17] MEDS: buPROPion HCL XL (24 HR) 150 MG TABCR 300 MG PO (07:32)
[2024-06-17] MEDS: SIMETHICONE 80 MG TAB.CHEW PO ×3 (07:32→16:37)
[2024-06-17] MEDS: MULTIVIT/MIN/PREN/FOL AC/IRON TABLET 1 TAB PO (07:33)
[2024-06-17] MEDS: ESCITALOPRAM OXALATE 10 MG TABLET PO (07:33)
[2024-06-17] MEDS: DOCUSATE SODIUM 100 MG CAPSULE PO ×2 (07:33→16:37)
[2024-06-17 08:00] VITALS: BP 140/84; PULSE 106; RESP 19; TEMP 36.7; O2SAT 99
[2024-06-17 08:04] LABS: Basophils Percent Auto 0.3 % (0.2-1.2); Eosinophils Absolute Auto 0.1 K/mm3 (0-0.3); Eosinophils Percent Auto 0.8 % (0-4.4); Hematocrit 28.8 % (37.0-47.0); Hemoglobin 9.1 g/dL (12.0-15.0); Immature Granulocyte Absolute 0.09 K/mm3 (0.00-0.031); Immature Granulocyte Percent A 0.8 % (0-0.5); Lymphocytes Absolute Auto 0.88 K/mm3 (0.9-3.2); Lymphocytes Percent Auto 7.9 % (18.3-44.2); Mean Corpuscular HGB Conc 31.6 g/dl (32-36); Mean Corpuscular Hemoglobin 28.9 pg (26-34); Mean Corpuscular Volume 91.4 fl (80-100); Mean Platelet Volume 9.7 fl (7.4-10.4); Monocytes Absolute Auto 0.6 K/mm3 (0.1-0.6); Monocytes Percent Auto 5.6 % (2.6-8.5); Neutrophils Absolute Auto 9.4 K/mm3 (1.3-6.7); Neutrophils Percent Auto 84.6 % (45.5-73.1); Platelet Count Result 211 k/mm3 (150-375); Red Blood Count 3.15 M/mm3 (4.2-5.4); Red Cell Distribution Width 13.6 % (11.5-14.5); White Blood Count 11.1 K/mm3 (4.5-10.0)
--- NOTE | 2024-06-17 08:07 | P.PNOB_ITS ---
OB - PN: Subj Subjective Date/time seen: 06/17/24 08:07 Interval history: post op day 1 voiding and passing flatus OB - PN: Obj Data Labs 06/17/24 04:08 Labs: Laboratory Results - last 24 hr 06/17/24 04:08 WBC 11.1 H RBC 3.15 L Hgb 9.1 L Hct 28.8 L MCV 91.4 MCH 28.9 MCHC 31.6 L RDW 13.6 Plt Count 211 MPV 9.7 Immature Gran % (Auto) 0.8 H Neut % (Auto) 84.6 H Lymph % (Auto) 7.9 L [place] % (Auto) 5.6 Eos % (Auto) 0.8 Baso % (Auto) 0.3 Lymph # (Auto) 0.88 L [place] # (Auto) 0.6 Eos # (Auto) 0.1 Baso # (Auto) 0.0 Abs Immat Gran (auto) 0.09 H Absolute Neuts (auto) 9.4 H Absolute Nucleated RBC 0.000 Nucleated RBC % 0.0 OB - PN A/P Plan day: 1 Plan: routine care Time Spent With Patient Time: Total time spent is greater than 50% in coordination of care (as documented) at patient's floor/unit and/or counseling patient: Review of Systems 2 Review of Systems: All systems reviewed & are unremarkable except as noted in HPI and below Exam 2 Const: General: cooperative and healthy appearing Chest: Chest palpation & inspection: normal inspection of the chest Resp: Effort & Inspection: normal respiratory effort Cardio: Rate: regular rate GI: Other: incision CDI Skin: General skin exam: normal color Neuro: General: patient oriented x3 Extrem: General: normal to inspection
[2024-06-17] MEDS: HYDROcodone/acetaminophen (*CRX) 10-325 MG TABLET 1 TAB PO ×2 (08:11→15:28)
[2024-06-17] MEDS: POLYSACCHARIDE IRON COMPLEX 150 MG CAPSULE PO ×2 (08:12→16:36)
--- NOTE | 2024-06-17 09:43 | PC.NURSE ---
Introductions were made, then consulted with patient to assess needs related to . Mother led the conversation with her?plans to feed?her infant and the?experience so far. Infant has been in level 2 nursery since and is now with mother rooming in. Mother is very excited to finally have infant rooming in. Mother plans to breastfeed infant but has been pumping while infant remained in level 2 nursery. This RN assisted with placing to breast in the football position. was able to latch and maintain latch for 5/6 sucks and would fall fast asleep. After a few more attempts to get infant to latch, mother states Im just really sleepy, can we try again with the next feeding and I will just pump this time? . She will call this RN with next feeding. Reported to the Primary RN.
--- NOTE | 2024-06-17 14:50 | WPDANLDPN2 ---
Anes-Prog Note L&D Date/Time: 06/17/24 14:50 Comfortable throughout: section Neuraxial method: epidural Epidural/Spinal procedure site: clean & non-tender Neuro status: Neuro function grossly intact. Cardiovascular status: normal Respiratory status: normal Airway patency: baseline Mental status: baseline Post-Op hydration status: normal Vital Signs: Last Vital Signs Temp 98.0 F 06/17/24 08:00 Pulse 106 H 06/17/24 08:00 Resp 19 06/17/24 08:00 BP 140/84 06/17/24 08:00 Pulse Ox 99 06/17/24 08:00 O2 Del Method Room Air 06/17/24 08:00 Pain score (VAS): 0/10 I/O: Intake & Output 06/16/24 06/17/24 06/17/24 23:59 07:59 15:59 Output Total 300 Balance -300 Post-procedural complaints: none Patient feedback: Patient satisfied with anesthetic care.
--- NOTE | 2024-06-17 14:51 | WPDANLDNPN2 ---
Anes-Prog Note L&D-Neuraxial Date/Time: 06/17/24 14:51 Neuraxial medications: intrathecal PF morphine Opiod-related complaints: none Patient feedback: Patient satisfied with post-operative pain management.
[2024-06-17] MEDS: LIDOCAINE 5% PATCH 1 PATCH TRANSDERM (17:58)
[2024-06-17 20:00] VITALS: BP 131/72; PULSE 92; RESP 16; TEMP 37; O2SAT 100
[2024-06-18] MEDS: HYDROcodone/acetaminophen (*CRX) 5-325 MG TABLET 1 TAB PO ×3 (00:52→21:32)
[2024-06-18] MEDS: ACETAMINOPHEN 325 MG TABLET 650 MG PO ×4 (04:35→22:50)
[2024-06-18] MEDS: IBUPROFEN 600 MG TABLET PO ×4 (04:35→22:50)
[2024-06-18 07:35] VITALS: BP 123/79; PULSE 84; RESP 16; TEMP 36.6; O2SAT 98
[2024-06-18] MEDS: MULTIVIT/MIN/PREN/FOL AC/IRON TABLET 1 TAB PO (08:05)
[2024-06-18] MEDS: DOCUSATE SODIUM 100 MG CAPSULE PO ×2 (08:06→16:27)
[2024-06-18] MEDS: buPROPion HCL XL (24 HR) 150 MG TABCR 300 MG PO (08:06)
[2024-06-18] MEDS: SIMETHICONE 80 MG TAB.CHEW PO ×3 (08:06→16:27)
[2024-06-18] MEDS: ESCITALOPRAM OXALATE 10 MG TABLET PO (08:06)
[2024-06-18] MEDS: POLYSACCHARIDE IRON COMPLEX 150 MG CAPSULE PO ×2 (08:06→16:27)
--- NOTE | 2024-06-18 08:22 | P.PNOB_ITS ---
OB - PN: Subj Subjective Date/time seen: 06/18/24 08:22 Interval history: post op day 1 voiding and passing flatus Patient comments: no complaints, pain well controlled, incisional pain, tolerating diet and flatus present OB - PN: Obj Data Labs 06/17/24 04:08 OB - PN A/P Plan day: 2 Plan: routine care Comments: POD#2 LTCS - no problems, Time Spent With Patient Time: Total time spent is greater than 50% in coordination of care (as documented) at patient's floor/unit and/or counseling patient: Exam 2 Const: General: comfortable, no acute distress and alert Resp: Effort & Inspection: normal respiratory effort Auscultation: no crackles, no rales and no rhonchi Cardio: Rate: regular rate Heart sounds: no click, no murmurs and no rubs GI: Inspection: non-distended Auscultation: normal bowel sounds Other: Incision - CDI Extrem: General: normal to inspection, no pedal edema and no calf tenderness
--- NOTE | 2024-06-18 09:08 | PC.NURSE ---
[id number] Introductions were made, then consulted with patient to assess needs related to . Discussed with mother her?plans to feed?her infant and the?experience so far. Mother states, I would like to breastfeed if baby is willing, she gets very sleepy at the breast, we have been trying each time for maybe 10 minutes or so . Mother used the hospital pump and pumped 5mls, she is going to now bottle feed the baby and also supplement with Similac. RN advised mother to call out with her next feeding to assess the feeding and latch. Resources provided for inpatient and outpatient services with the feeding sheet, mom/baby guide and name written on the communication board. Mother voiced understanding of information and will call if there is a request for assistance. Reported to the Primary RN. [id number] Jimenez and he is ok with baby feeding and attempting at the breast for 10-15 mins with each feeding if the mother wishes to do so but then she needs to supplement with pumped breastmilk and/or formula. Reported to Primary RN. [id number] Per Primary RN, Dr. Jimenez would like for the baby to now receive the Similac 22 calorie formula as baby's weight is down and it is still ok for the baby to feed and attempt at the breast for 10-15 mins with each feeding if the mother wishes to do so.
--- NOTE | 2024-06-18 17:44 | PC.NURSE ---
1600. Mom pumped independently and collected 6 cc of breast milk. Infant took 6 cc of breastmilk via syringe, mom supplemented after with 30 cc of formula due to infants weight loss. Mom chose not to breastfeed for this feeding. Reported to the primary RN.
[2024-06-18 20:00] VITALS: BP 121/76; PULSE 98; RESP 18; TEMP 36.4; O2SAT 95
[2024-06-19] MEDS: IBUPROFEN 600 MG TABLET PO ×2 (04:49→11:16)
[2024-06-19] MEDS: ACETAMINOPHEN 325 MG TABLET 650 MG PO ×2 (04:49→11:16)
[2024-06-19 07:30] VITALS: BP 116/62; PULSE 89; RESP 16; TEMP 36.6; O2SAT 99
--- NOTE | 2024-06-19 07:40 | P.PNOB_ITS ---
OB - PN: Subj Subjective Date/time seen: 06/19/24 07:40 Interval history: post op day 3 voiding and passing flatus desires d/c home OB - PN: Obj Data Labs 06/17/24 04:08 OB - PN A/P Plan day: 3 Plan: routine care and discharge home Time Spent With Patient Time: Total time spent is greater than 50% in coordination of care (as documented) at patient's floor/unit and/or counseling patient: Exam 2 Const: General: cooperative and healthy appearing Resp: Effort & Inspection: normal respiratory effort Cardio: Rate: regular rate GI: Other: soft/gravid : Other: incision CDI
--- NOTE | 2024-06-19 07:48 | P.DS_ITS ---
DS: Admitting Diagnosis Discharge Date 06/19/24 Admitting Diagnosis contractions DS: Discharge Diagnosis Discharge Diagnosis (1) Post-op pain: Code(s): G89.18 - Other acute postprocedural pain Status: Acute OB - DS: Summary OB Procedures : None OB Procedures Intrapartum: OB Procedures: : None Peripartum Data Procedures: Procedures Operation Date: 06/16/24 00:10 Actual Procedure Side Surgeon p Section Not Applicable Cristi Davidson MD Time Spent with Patient Time attestation: Total time spent providing and/or coordinating discharge services: DS: Data Data Completed and Pending Pending studies at discharge: Pending at discharge 06/16/24 00:56 Surgical [PTH] Routine Discharge Plan Discharge Attending physician on discharge: Cristi Davidson Discharging Clinician: Veronika Velazquez Patient Disposition: Home, Self-Care Activity: pelvic rest Diet: regular Patient Instructions: Antibiotic Form Patient Language: Palauan Stand Alone Forms: General Discharge Information Follow-up/Referrals: Cristi Davidson MD [Physician] - 1 Week Discharge Medications: New hydrocodone-acetaminophen 5-325 mg Tablet 1 tablet PO Q3H PRN (Reason: Breakthrough Pain Rated 4-6) 15 Days Qty: 25 0RF Continued Zyrtec 10 mg Capsule 10 mg PO DAILY PRN (Reason: allergies) escitalopram oxalate 10 mg tablet 10 mg PO DAILY bupropion HCl 300 mg tablet extended release 24 hr 300 mg PO DAILY ferrous sulfate 142 mg (45 mg iron) Tablet Extended Release 142 mg PO DAILY Discontinued aspirin 81 mg Tablet,Chewable 81 mg PO DAILY No Action PNV cmb#95-ferrous fumarate-FA [] 28 mg iron- 800 mcg Tablet 1 tablet PO DAILY promethazine 25 mg Tablet 25 mg PO Q6H PRN (Reason: Nausea) Qty: 15 0RF nifedipine [Procardia XL] 60 mg Tablet Extended Release 24hr 60 mg PO DAILY Qty: 30 0RF Date of admission: 06/15/24 10:30 Primary Care Provider: Carlitos Lubin Admitting Provider: Cristi Davidson Attending physician on admission: Cristi Davidson Condition: Stable
[2024-06-19] MEDS: POLYSACCHARIDE IRON COMPLEX 150 MG CAPSULE PO (09:56)
[2024-06-19] MEDS: DOCUSATE SODIUM 100 MG CAPSULE PO (09:56)
[2024-06-19] MEDS: SIMETHICONE 80 MG TAB.CHEW PO (09:56)
[2024-06-19] MEDS: MULTIVIT/MIN/PREN/FOL AC/IRON TABLET 1 TAB PO (09:56)
[2024-06-19] MEDS: ESCITALOPRAM OXALATE 10 MG TABLET PO (09:56)
[2024-06-19] MEDS: buPROPion HCL XL (24 HR) 150 MG TABCR 300 MG PO (09:56)
--- NOTE | 2024-06-19 13:45 | PC.NURSE ---
Pt discharged to a [facility], no care bed, due to baby having to stay for weight gain. Discharge papers discussed and patient verbalized understanding.
[2024-06-22 10:31] VITALS: BP 124/82; PULSE 97; RESP 18; TEMP 36.6; O2SAT 99
== END 2024-06-19 13:45 | disposition home or self-care (01) | DRG 788 ==
LOC: ANHOBOP 10:38 → ANHLDR 10:41 → ANHOBOP 11:06 → ANHLDR 11:06 → ANHOB2 06-16 07:10
PROVIDERS: Admitting Provider Obstetrics & Gynecology; PCP Family Medicine; Visit Provider Obstetrics & Gynecology
PROC: 10D00Z1 Extraction of Products of Conception, Low, Open Approach (ICD-10-PCS; CPT 59514; principal; 2024-06-16 00:10)
DX: O42.913 Preterm premature rupture of membranes, unspecified as to length of time between rupture and onset of labor, third trimester (principal); Z3A.35 35 weeks gestation of pregnancy; Z37.0 Single live birth; O62.2 Other uterine inertia; O76 Abnormality in fetal heart rate and rhythm complicating labor and delivery; O99.214 Obesity complicating childbirth; E66.01 Morbid (severe) obesity due to excess calories; O99.344 Other mental disorders complicating childbirth; O99.02 Anemia complicating childbirth; F41.9 Anxiety disorder, unspecified; F32.A Depression, unspecified
CPT/HCPCS: 36415; 84112; 85025; 86592; 86703; 86850; 86900; 86901; 88307; A9270; G0432; J0290; J1200; J1885; J2004; J2274; J2371; J2405; J2590; J2795; J3010; J7120